=== PATIENT | female | born 1975 | race Caucasian/White ===

== ENCOUNTER 2016-07-31 17:16 | Observation (INO) | payer OTHER ==
--- NOTE | ~2016-07-31 | EKG ---
PATIENT: ELOY SALAZAR UNIT #: [id number] Ventricular Rate: 58 BPM Atrial Rate: 58 BPM P-R Interval: 148 ms QRS Duration: 76 ms Q-T Interval: 432 ms QTC Calculation(Bezet): 424 ms P Pyrites: 33 degrees Calculated R Pyrites: 49 degrees Calculated T Pyrites: 31 degrees Diagnosis Line: Sinus bradycardia Diagnosis Line: Otherwise normal ECG Diagnosis Line: When compared with ECG of 31-JUL-2016 15:04, Diagnosis Line: Nonspecific T wave abnormality no longer evident Diagnosis Line: in Anterior leads Diagnosis Line: Confirmed by JOSÉ MIGUEL LOZADA MD ([id number]) on 08/03/2016 Diagnosis Line: 11:45:12 AM INTERPRETING MD: NEVILLE MONTE
--- NOTE | ~2016-07-31 | DS ---
Unit #: [id number] #: [id number] Patient: ELOY SALAZAR [id number] [address] [address] [id number] I MR#: [id number] NAME: ELOY SALAZAR. ROOM: 4 Age: 40 Sex: F Admission Date: 07/31/2016 : 1975 Discharge Date: 08/01/2016 Attending Physician: Nguyen Cordova M.D. DISCHARGE SUMMARY CHIEF COMPLAINT Chest discomfort. HISTORY OF PRESENT ILLNESS/HOSPITAL COURSE The patient was admitted with chest discomfort. Myocardial infarction was ruled out with negative troponins x3. A 12-lead EKG was negative for acute changes. Lipid profile was obtained which showed a total cholesterol of 135, triglycerides 175, LDL 64, and HDL of 35. TSH of 2.04. She underwent Cardiolite treadmill stress testing which was negative for ischemia. A 2D echo was obtained at time of this discharge, and results are still pending. DISCHARGE DIAGNOSES 1. Hypertension, well controlled, discharge blood pressure 103/42. 2. Chest discomfort, negative myocardial infarction, negative workup. 3. Diabetes mellitus, insulin dependent. Continue same medications. 4. Hypertriglyceridemia. Recommend diet modification and followup with primary care physician. 5. Patient does not smoke tobacco but lives in a house where two people smoke tobacco. Recommended that she request that her family smoke outside and limit secondhand tobacco abuse. Increase exercise. Follow up with her primary care physician in two weeks. DISCHARGE MEDICATIONS Being discharged home on her home medications as follows: 1. Sertraline 100 mg daily. 2. Zyrtec 10 mg daily. 3. Hydroxyzine 50 mg at bedtime. 4. Lantus 25 units daily. 5. Zestril 10 mg daily. 6. Omeprazole 40 mg daily. 7. Multivitamin tablet daily. No changes made. Dictated by... Alonzo Ying.P.R.N. for Sukhdev Smith/dot TD: 08/01/2016 21:43 JOB #: [id number] Unit #: [id number] #: [id number] Patient: ELOY SALAZAR DISCHARGE SUMMARY Page 1 of 1 X X DISCHARGE SUMMARY
--- NOTE | ~2016-07-31 | EKG ---
PATIENT: ELOY SALAZAR UNIT #: [id number] Ventricular Rate: 72 BPM Atrial Rate: 72 BPM P-R Interval: 134 ms QRS Duration: 78 ms Q-T Interval: 406 ms QTC Calculation(Bezet): 444 ms P [place]: 33 degrees Calculated R [place]: 45 degrees Calculated T [place]: 31 degrees Diagnosis Line: Normal sinus rhythm Diagnosis Line: Normal ECG Diagnosis Line: When compared with ECG of 24-FEB-2016 21:08, Diagnosis Line: No significant change was found Diagnosis Line: Confirmed by CAROLINA RICH MD ([id number]) on 07/31/2016 Diagnosis Line: 10:34:01 PM INTERPRETING MD: LAYLA MONTE
--- NOTE | ~2016-07-31 | TH ---
Unit #: [id number] #: [id number] Patient: ELOY SALAZAR [id number] [address] [address] [id number] I MR#: [id number] NAME: ELOY SALAZAR. : 1975 SEX: F STUDY DATE/TIME: 08/01/2016 UNIT: [id number] ROOM: 554 STUDY DESCRIPTION: EKG and Imaging Attending Physician: Nguyen Cordova M.D. Primary Care Physician: No Primary Care Physician CARDIOLOGY REPORT EXAM EKG and nuclear part of the test DESCRIPTION OF PROCEDURE AND FINDINGS The patient's baseline heart rate is 63 beats per minute, blood pressure 122/78. Patient received Lexiscan infusion as per protocol. At peak infusion heart rate 96 beats per minute and blood pressure 119/73. The patient's baseline EKG is showing normal sinus rhythm, normal EKG; during Lexiscan infusion and recovery no further ST and T changes. Patient also received 9.58 mCi of Cardiolite at rest and 36.0 mCi of Cardiolite during stress. Both sets of images were compared. Patient shows fairly uniform uptake of radiotracer. No defect was noted. Patient also has gated SPECT scan done which shows normal LV size and function. No wall motion abnormality detected. Ejection fraction is 63%. INTERPRETATION OF THE TEST 1. EKG part of the test is negative for Lexiscan-induced ischemia. 2. Nuclear part of the test negative for myocardial ischemia. 3. Gated SPECT scan shows normal left ventricular size and function. Dictated by... Sukhdev Smith/dave TD: 08/01/2016 16:13 JOB #: [id number] CARDIOLOGY REPORT Page 1 of 1 X Cristi Mccarthy MD CARDIOLOGY REPORT
--- NOTE | ~2016-07-31 | HP ---
Unit #: [id number] #: [id number] Patient: ELOY SALAZAR [id number] [address] [address] [id number] I MR#: [id number] NAME: ELOY SALAZAR. ROOM: 554 Age: 40 Sex: F Admission Date: 07/31/2016 : 1975 Attending Physician: Nguyen Cordova M.D. Primary Care Physician: No Primary Care Physician HISTORY AND PHYSICAL CHIEF COMPLAINT Chest pain. HISTORY OF PRESENT ILLNESS Ms. Salazar is a 40-year-old white female who states that yesterday morning (now greater than 24 hours at 2 a.m.), she started having midsternal chest discomfort. It is a pressure type feeling. It is radiating to her left arm. In her left arm she is having numbness and tingling. This pain has been constant. She has taken sublingual nitroglycerin which has made the pain better, but the pain comes right back. The patient does have a history of hypertension, insulin dependent diabetes mellitus. She has a history of coronary catheterization 01/19/[address] Cristi Mccarthy, which showed a normal left main, normal LAD, normal left circumflex and normal right coronary artery with an ejection fraction of 60%. She is stating she had a repeat stress test about a year ago at [facility] and had a 30% blockage in an artery, but does not know what artery. PAST MEDICAL HISTORY 1. Hypertension. 2. Insulin dependent diabetes. 3. Depression. PAST SURGICAL HISTORY 1. Appendectomy. 2. Hysterectomy. 3. Tubal ligation. 4. Coronary catheterization times two. SOCIAL HISTORY No tobacco. No alcohol. No illicit drug use. FAMILY HISTORY Mother with myocardial infarction and stroke in her 50s. Father with first myocardial infarction and bypass surgery in his 40s. Two siblings with arteriosclerotic heart disease, both again in their 30s and 40s. ALLERGIES Amoxicillin. HOME MEDICATIONS 1. Sertraline 100 mg daily. 2. Zyrtec 10 mg daily. 3. Hydroxyzine 50 mg at bedtime. 4. Lantus 25 units daily. Unit #: [id number] #: [id number] Patient: ELOY SALAZAR 5. Zestril 10 mg daily. 6. Omeprazole 40 mg daily. 7. Multivitamin tablet daily. REVIEW OF SYSTEMS Cardiovascular risk factors include hypertension, dyslipidemia. Family history of premature arteriosclerotic heart disease. Negative for dyslipidemia. Negative for tobacco abuse. No fevers. No chills. No cough. No bright red bleeding per rectum. No hematuria. No difficulty swallowing. No difficulty walking. PHYSICAL EXAMINATION GENERAL: Well-developed, well-nourished, obese white female in no acute distress. VITALS: Temperature 97.8, pulse 54, respiratory rate 18, blood pressure 85/49, height 5'4", weight 113.39 kg, BMI 42. HEENT: Normocephalic, atraumatic. No xanthelasma. Pupils equal, round and reactive to light. Extraocular movements are intact. NECK: Supple. No jugular venous distension. No elevated CVP. LUNGS: Clear to auscultation anteriorly and posteriorly bilaterally. Nonproductive cough. HEART: S1 and S2. No S3 or S4. No murmurs, rubs or gallops. No lift. PMI is nondisplaced. ABDOMEN: Obese. Positive bowel sounds. EXTREMITIES: No clubbing, cyanosis or edema. Two plus pulses bilaterally. SKIN: No rash. No ulcers. No wounds. SPINE: No scoliosis. DIAGNOSTIC STUDIES IMAGING: Chest x-ray shows previous thoracic fusion. No active disease. LABORATORY: Chemistry, sodium 137, potassium 4.8, chloride 103, CO2 25, BUN 17, creatinine 0.9, glucose 321. Calcium 9.0, total protein 7.3, albumin 3.3, AST 31, ALT 14, alkaline phosphatase 121. PT 9.9, INR 0.9, PTT 26.6. Zcmjg-zv-dcom troponin less than 0.05, repeat less than 0.05. Hemoglobin 13, hematocrit 40.5, white blood cell count 9.0, platelets 310. ASSESSMENT/PLAN Chest discomfort with two negative troponins. Twelve lead EKG number one shows normal sinus rhythm, ventricular rate 72, no acute ST-T changes. Repeat EKG this a.m. shows a sinus bradycardia, ventricular rate 58. Again, no acute ST-T changes. Normal sinus rhythm. We will repeat a STAT troponin level, get a Cardiolite treadmill stress test with Lexiscan and backup if needed. Two-dimensional echo has already been ordered. We will add a lipid panel and TSH STAT. If workup is negative, we will discharge her home and have her follow up with her primary care physician. Dictated by Shweta Franklin A.P.R.N. for Sukhdev Smith/indiana TD: 08/01/2016 10:46 JOB #: [id number] Unit #: [id number] #: [id number] Patient: ELOY SALAZAR HISTORY AND PHYSICAL Page 1 of 1 X X HISTORY AND PHYSICAL
--- NOTE | ~2016-07-31 | CR72 ---
[facility] A Service of [facility] & [facility] RADIOLOGY TEXT RESULTS PATIENT: ELOY SALAZAR LOCATION: [facility] : [birth year] UNIT #: [id number] AGE: [address]: Nguyen Cordova MD SEX: F ORDER DR: [id number] [facility] [address] [facility]. [place], [place] [address] [id number] MR#: [id number] Acc #: [id number] NAME: ELOY SALAZAR. : 1975 SEX: F STUDY DATE/TIME: 07/31/2016 16:14 UNIT: [facility] ROOM: STUDY DESCRIPTION: CR Chest Single View Portable Attending Physician: Murphy Hunt M.D. Ordering Physician: Brock Samuels M.D. Primary Care Physician: No Primary Care Physician MEDICAL IMAGING REPORT This report is preliminary unless electronic signature is present EXAM Portable chest, 07/31 COMPARISON 02/14/2016 HISTORY SUPPLIED Chest pain, cough and congestion for 2 weeks. FINDINGS An AP view is obtained. The cardiovascular configuration of the chest is normal, the lungs are clear. Postsurgical changes of prior thoracic fusion are present. CONCLUSION 1. Previous thoracic fusion. 2. No active disease. Dictated by... Farzad Vo M.D. THIS IS AN ELECTRONICALLY VERIFIED REPORT Farzad Vo M.D. at 08/02/2016 7:19 AM DARIEN/francine TD: 07/31/2016 20:45 JOB #: [id number] MEDICAL IMAGING REPORT Page 1 of 1 COPY
--- NOTE | ~2016-07-31 | BMI ---
[facility] Nutrition Therapy DATE: 08/01/16 Patient: ELOY SALAZAR Physician: TRUPTI Address: [address] [place] [address] Room/Bed: [address] [place] [address], [facility], Zip: [place] [address] Admit Date: 07/31/16 Date of : [birth year] Height: 5 4 Weight: 250 113.39 HIGH BMI NOTE: DX: 40 yo female admitted for chest pains ANTHROPOMETRICS: Ht: 5'4" Wt: 113.2 kg (249#) BMI: 42.8 DIET: NPO INTERVENTION: 1. NPO RECOMMENDATIONS: 1. Once medically feasible, advance diet to consistent carb + healthy heart diet to promote gradual weight loss towards healthy BMI. RD will f/u per protocol. Respectfully, Akosua Barros, Trauma Program Manager Kerline Giraldo MS, RD, LD [facility] cc: client file
[2016-07-31 16:24] LABS: BASOPHIL% 0.4 % (0-2.5); HEMATOCRIT 40.5 % (35.0-45.0); LYMPHOCYTE# 1.6 X10e3 (1.0-3.5); LYMPHOCYTE% 18.2 % (17.0-45.0); MEAN CELL VOLUME 84.5 FL (83-96); MEAN CORPUSCULAR HEMOGLOBIN 27.2 PG (28-34); MEAN CORPUSCULAR HGB CONC 32.2 g/dL (30-36); MEAN PLATELET VOLUME 9.5 FL (6.5-11.5); MONOCYTE# 0.7 X10e3 (0-1.0); MONOCYTE% 7.4 % (3.0-12.0); NEUTROPHIL# 6.7 X10e3 (1.5-7.1); PLATELET COUNT 310 X10e3 (140-420); RED BLOOD COUNT 4.79 X10e (3.90-5.30)
[2016-07-31 16:26] LABS: DIFF IND NO
[2016-07-31 16:40] LABS: INR 0.9; PARTIAL THROMBOPLASTIN TIME 26.6 SECONDS (23.5-31.3); PROTHROMBIN TIME (PATIENT) 9.9 SECONDS (9.6-11.5)
[2016-07-31 16:52] LABS: ALBUMIN SERUM 3.3 g/dL (3.5-5.0); ALKALINE PHOSPHATASE 121 U/L (32-92); ALT (SGPT) 14 U/L (10-40); AST (SGOT) 13 U/L (10-42); BILIRUBIN,TOTAL 0.4 mg/dL (0.2-2.0); BLOOD UREA NITROGEN 17 mg/dL (9-23); BUN/CREATININE RATIO 18.88; CARBON DIOXIDE 25 mmol/L (22-31); CHLORIDE 103 mmol/L (100-111); CREATININE SERUM 0.9 mg/dL (0.6-1.4); GLOM FILT RATE Estimated 79.5 mL/min (>60); GLUCOSE FASTING 321 mg/dL (70-110); POTASSIUM 4.8 mmol/L (3.5-5.1); PROTEIN TOTAL SERUM 7.3 g/dL (6.0-8.3); SODIUM 137 mmol/L (135-145)
[2016-07-31 16:58] LABS: BILIRUBIN, DIRECT <0.1 mg/dL (0.0-0.2); BILIRUBIN,INDIRECT 0.3 mg/dL (0.0-0.9)
[~2016-07-31 17:16] MED LIST: ACETAMINOPHEN PO; ALPRAZOLAM PO; ASPIR-TRIN325 MG PO; ATARAX; AUGMENTIN875 M1 PO; BACTRIM DS TABL1 TA1 PO; BACTRIM DS TABL1 TAB PO; BENADRYL25 M3 PO; BENADRYL25 MG PO; BENTYL10 MG PO; BENTYL20 MG PO; BENZONATATE PO; CELEXA20 MG PO; CETIRIZINE HCL10 MG PO; CIPRO PO; COLACE1 SUPP.RE1; DICLOFENAC PO; DIFLUCAN PO; DOC-Q-LACE100 MG PO; EC-NAPROSYN500 MG PO; FIORICET1 TAB PO; FLEXERIL10 MG PO; GLUCOPHAGE500 M1 PO; GLUCOPHAGE500 MG; GLUCOPHAGE500 MG PO; GLUCOTROL PO; HYCODAN60 ML 5MG/ PO; HYDROCODON-ACE1 EAC5 PO; HYDROXYZINE HCL50 MG PO; IBUPROFEN PO; IBUPROFEN800 MG PO; INSULIN SYR1 DIS.S10 MC; K-DUR20 ME1 PO; KEFLEX500 MG PO; LANTUS SOLOSTAR3 ML SQ; LANTUS100 U/M1 INJ; LANTUS100 U/M1 SQ; LANTUS100 U/ML; LANTUS100 U/ML SUBQ; LANTUS100 UNITS/ SUBQ; LIPITOR40 MG PO; LISINOPRIL10 MG PO; LORTAB 5/500 TA1 TA1 PO; LORTAB 5/500 TA1 TA2 PO; LOTRISONE CREAM45 GM TOP; MEDROL4 MG/DOSE- PO; METFORMIN; METFORMIN HCL500 M1 PO; METFORMIN PO; METRONIDAZOLE PO; MOBIC15 MG PO; MOTRIN600 MG PO; NAPROSYN250 M1 PO; NAPROSYN500 MG PO; NEURONTIN300 MG PO; NEURONTIN600 MG PO; NITROGLYGERIN0.4 MG SL; NITROGYLCERIN SUBLINGUAL; NO MEDICATIONS; OMEPRAZOLE40 M1 PO; OMEPRAZOLE40 MG PO; OMNICEF300 M1 PO; OMNICEF300 MG PO; OXYCODON-ACETA1 EAC2 PO; PERCOCET 10/31 UDTA1 PO; PERCOCET 10/3251 TAB PO; PHENERGAN PO; PHENERGAN25 MG PO; PREDNISONE PO; PREDNISONE10 MG; PRILOSEC20 MG; PRILOSEC20 MG PO; PROAIR HFA8.5 GM INH; PROMETHAZINE D118 ML PO; PROTONIX PO; PYRIDIUM PO; ROBAXIN500 MG PO; SENNA S TABLET1 TAB PO; SERTRALINE HCL100 M1 PO; SERTRALINE HCL100 MG PO; SERTRALINE HCL50 MG PO; STOOL SOFTENER50 MG PO; TOPAMAX PO; TOPAMAX200 MG PO; TRIAMCINOLONE AC1 GM EXT; ULTRAM PO; VICODIN 5/1 TAB 5/50 PO; VOLTAREN-XR100 M1 PO; VOLTAREN50 MG PO; ZESTRIL10 M1 PO; ZITHROMAX PO; ZITHROMAX500 MG PO; ZOFRANODT PO; ZYRTEC10 M2 PO; [UNRECOGNIZED DRUG - OTHER]; [UNRECOGNIZED DRUG - OTHER]; [UNRECOGNIZED DRUG - OTHER] PO
[2016-07-31 17:54] LABS: POC - CKMB <1.0 ng/mL (0.0-7.9); POC - TROPONIN <0.05 ng/mL (<=0.05)
[2016-07-31 18:08] LABS: POC - CKMB <1.0 ng/mL (0.0-7.9); POC - TROPONIN <0.05 ng/mL (<=0.05)
[2016-08-01] MEDS ORDERED: MULTI VITAMIN1 EACH PO (00:22)
[2016-08-01 10:18] LABS: BASOPHIL# 0.1 X10e3 (0-0.3); BASOPHIL% 1.1 % (0-2.5); HEMATOCRIT 35.9 % (35.0-45.0); HEMOGLOBIN 11.5 gm/dL (12.0-16.0); LYMPHOCYTE# 2.2 X10e3 (1.0-3.5); LYMPHOCYTE% 32.4 % (17.0-45.0); MEAN CELL VOLUME 84.4 FL (83-96); MEAN PLATELET VOLUME 9.2 FL (6.5-11.5); MONOCYTE# 0.7 X10e3 (0-1.0); MONOCYTE% 10.3 % (3.0-12.0); NEUTROPHIL# 3.8 X10e3 (1.5-7.1); NEUTROPHIL% 56.2 % (40-75); PLATELET COUNT 264 X10e3 (140-420); RED BLOOD COUNT 4.26 X10e (3.90-5.30); RED CELL DISTRIBUTION WIDTH 14.5 % (11.0-15.5); WHITE BLOOD COUNT 6.7 X10e3 (4.0-10.5)
[2016-08-01 10:36] LABS: PARTIAL THROMBOPLASTIN TIME 26.7 SECONDS (23.5-31.3); PROTHROMBIN TIME (PATIENT) 10.1 SECONDS (9.6-11.5)
[2016-08-01 10:37] LABS: DIFF IND NO
[2016-08-01 11:09] LABS: BUN/CREATININE RATIO 23.75; CALCIUM SERUM 8.5 mg/dL (8.4-10.2); CREATININE SERUM 0.8 mg/dL (0.6-1.4); GLOM FILT RATE Estimated 91.7 mL/min (>60); POTASSIUM 4.5 mmol/L (3.5-5.1)
[2016-12-29] MEDS ORDERED: NAPROXEN PO (18:26)
[2016-12-29] MEDS ORDERED: PRIMIDONE PO (18:26)
[2016-12-29] MEDS ORDERED: GABAPENTIN PO (18:26)
[2016-12-29] MEDS ORDERED: TRAZODONE PO (18:26)
== END 2016-08-01 17:19 | disposition home or self-care (01) ==
LOC: CED 17:16 → CEDOF 20:20 → C5B 23:31
PROVIDERS: Emergency Medicine; Internal Medicine Cardiovascular Disease
DX: R07.9 Chest pain, unspecified (principal); I10 Essential (primary) hypertension; F32.9 Major depressive disorder, single episode, unspecified; E11.9 Type 2 diabetes mellitus without complications; Z90.49 Acquired absence of other specified parts of digestive tract; Z90.710 Acquired absence of both cervix and uterus; Z98.51 Tubal ligation status; Z98.890 Other specified postprocedural states; Z82.49 Family history of ischemic heart disease and other diseases of the circulatory system; Z82.3 Family history of stroke; Z88.0 Allergy status to penicillin; Z79.899 Other long term (current) drug therapy; Z79.4 Long term (current) use of insulin
CPT/HCPCS: 36415; 71010; 78452; 80048; 80061; 80076; 82550; 82553; 82947; 84443; 84484; 84703; 85025; 85610; 85730; 93005; 93017; 93306; 96374; 99285; A9500; G0378; J2270; J2785